=== PATIENT | female | born 1950 | race Caucasian/White ===

== ENCOUNTER 2018-01-08 07:56 | Day surgery (SDC) | payer MEDICARE ==
[~2018-01-08] VITALS: Ht 162.6 cm; Wt 107.6 kg
[~2018-01-08 07:56] MED LIST: ASPI81CH; Adult Low Dose81 MG PO; CHOL10002 PO; CITA20; CITA20 PO; DIOVAN/HCT; ESTR2 PO; FISH OIL 1,0001 EAC1 PO; HYDCHL12.5; HYDCHL12.5 PO; METO25 PO; METO50 PO; MULTI VITAMIN1 EACH PO; NAPR220; UBID100 PO; VENL75 PO; VITAMIN B COMPLEX PO
== END 2018-01-08 10:00 | disposition home or self-care (01) ==
LOC: ORSCSDS 07:56
PROVIDERS: Internal Medicine Gastroenterology
PROC: 0DJD8ZZ Inspection of Lower Intestinal Tract, Via Natural or Artificial Opening Endoscopic (ICD-10-PCS; principal; 2018-01-08 09:30)
DX: Z12.11 Encounter for screening for malignant neoplasm of colon (principal); K57.30 Diverticulosis of large intestine without perforation or abscess without bleeding; F32.9 Major depressive disorder, single episode, unspecified; K64.4 Residual hemorrhoidal skin tags; I10 Essential (primary) hypertension; E11.9 Type 2 diabetes mellitus without complications; G47.33 Obstructive sleep apnea (adult) (pediatric); E78.5 Hyperlipidemia, unspecified; K76.0 Fatty (change of) liver, not elsewhere classified; Z87.891 Personal history of nicotine dependence; E66.9 Obesity, unspecified; Z68.41 Body mass index [BMI] 40.0-44.9, adult; Z79.82 Long term (current) use of aspirin; Z79.84 Long term (current) use of oral hypoglycemic drugs; Z79.899 Other long term (current) drug therapy
CPT/HCPCS: 82947; J7120

== ENCOUNTER 2020-04-06 10:50 | Day surgery (SDC) | payer MEDICARE ==
[~2020-04-06] VITALS: Ht 162.6 cm; Wt 107.0 kg
[~2020-04-06 10:50] MED LIST changes: +ASPIR 8181 M1 PO; +ATOR20 PO; -Adult Low Dose81 MG PO; +BUPR100 PO; -CHOL10002 PO; +METF500 PO; +VITAMIN D310 MC4 PO
--- NOTE | 2020-04-06 15:33 | NUR ---
ARRIVED FROM PACU VIA BED, AWAKE, A&OX3, DENIES ANY PAIN, REPORTS BLE'S ARE STILL NUMB, UNABLE TO MOVE BLE'S AT THIS TIME, DSG C/D/I, POLAR PACK IN PLACE, PLACED ON 2L O2 VIA NC, SATS 87% ON RA, PT STATES HER DAUGHTER IS GOING TO BRING IN HER CPAP, MONITOR VS AND ANY CHANGES, ASSIST PRN.
--- NOTE | 2020-04-06 18:18 | NUR ---
STSUMMARY DENIES ANY PAIN, ABLE TO MOVE BOTH FEET AND SLIGHTLY LIFT OFF BED, PT STATES STILL HAS WEAKNESS ON LLE, USED BEDPAN TO VOID, DSG C/D/I, NO ACUTE CHANGES THIS SHIFT.
[2020-04-07 05:40] LABS: BASOPHILS ABSOLUTE AUTO 0.02 K/mm3 (0.00-0.23); BASOPHILS PERCENT AUTO 0 % (0-2); EOSINOPHILS PERCENT AUTO 0 % (0-6); Hematocrit 35.9 % (33.0-51.0); Hemoglobin 11.4 g/dL (11.5-16.0); IMMATURE GRAN ABSOLUTE AUTO 0.05 K/mm3 (0.00-0.10); IMMATURE GRAN PERCENT AUTO 0 % (0-1); LYMPHOCYTES ABSOLUTE AUTO 1.44 K/mm3 (0.84-5.20); LYMPHOCYTES PERCENT AUTO 11 % (21-46); MONOCYTES ABSOLUTE AUTO 1.02 K/mm3 (0.16-1.47); MONOCYTES PERCENT AUTO 8 % (4-13); Mean Corpuscular HGB 28.2 pg (26.0-34.0); Mean Corpuscular HGB Conc 31.8 g/dL (31.5-36.5); Mean Corpuscular Volume 89 fL (80-100); NEUTROPHILS ABSOLUTE AUTO 10.68 K/mm3 (1.96-9.15); NEUTROPHILS PERCENT AUTO 81 % (41-73); Platelet Count 203 K/mm3 (150-400); RDW Coefficient Variation 12.3 % (11.7-14.2); RDW Standard Deviation 40.1 fL (35.1-46.3); Red Blood Cell Count 4.04 M/mm3 (3.80-5.20); White Blood Cell Count 13.21 K/mm3 (4.00-11.30)
[2020-04-07 06:02] LABS: Anion Gap 8 mmol/L (6-16); Blood Urea Nitrogen 20 mg/dL (8-24); Bun/Creatinine Ratio 28.7 (12.0-20.0); CO2, Blood 26 mmol/L (21-32); Calcium, Blood 8.9 mg/dL (8.5-10.1); Chloride, Blood 107 mmol/L (98-108); Glomerular Filtration Rate >60 (60-); Glucose, Blood 129 mg/dL (70-99); Magnesium, Blood 1.4 mg/dL (1.6-2.4); Potassium, Blood 4.2 mmol/L (3.5-5.5); Sodium, Blood 141 mmol/L (136-145)
--- NOTE | 2020-04-07 06:25 | NUR ---
SHIFT SUMMARY LYING IN SEMI FOWLERS WITH EYES OPEN. HAS RESTED WELL THIS SHIFT, PIV IS PATENT, FLUSHING WITH EASE. LEFT KNEE AQUACEL IS PATENT, NO SHADOWING NOTED. NO SIGNIFICANT CHANGES THIS SHIFT. DENIES PAIN, DISCOMFORT, OR FURTHER NEEDS AT THIS TIME. SAFETY MEASURES IN PLACE. WILL CONTINUE TO MONITOR UNTIL GIVING HAND OFF TO ONCOMING SHIFT USING SBAR.
[2020-04-07] MEDS ORDERED: ACET500 PO (09:38)
[2020-04-07] MEDS ORDERED: OXYC5 PO (09:39)
--- NOTE | 2020-04-07 10:15 | NUR ---
L KNEE DRESSING CHANGED, SLIGHT BRUISING NOTED AROUND INCISIONS SITE, NO REDNESS NOTED, NEW AQUACEL DRESSING PLACED, PT INSTRUCTED ON DRESSING CHANGE, VERBALIZED UNDERSTANDING.
== END 2020-04-07 10:51 | disposition home or self-care (01) ==
LOC: ORSCMMR 10:50 → ORD 13:45 → ORSCMMR 13:45 → SURS 14:50 → ORSCMMR 04-07 10:51
PROVIDERS: Orthopaedic Surgery
PROC: 8E0Y0CZ Robotic Assisted Procedure of Lower Extremity, Open Approach (ICD-10-PCS; principal; 2020-04-06 13:45)
PROC: 0SRD0JA Replacement of Left Knee Joint with Synthetic Substitute, Uncemented, Open Approach (ICD-10-PCS; principal; 2020-04-06 13:45)
DX: M17.12 Unilateral primary osteoarthritis, left knee (principal); I10 Essential (primary) hypertension; G47.33 Obstructive sleep apnea (adult) (pediatric); E11.9 Type 2 diabetes mellitus without complications; E66.01 Morbid (severe) obesity due to excess calories; Z68.41 Body mass index [BMI] 40.0-44.9, adult; Z79.84 Long term (current) use of oral hypoglycemic drugs; Z79.82 Long term (current) use of aspirin; Z79.899 Other long term (current) drug therapy
CPT/HCPCS: 27447; S2900; 36415; 73560-LT; 80048; 82947; 83735; 85025; 88300; 94760; 97110; 97116; 97162; 97530; A9270; C1776; J0171; J0690; J0735; J1100; J1815; J1885; J2250; J2370; J2405; J2704; J2795; J7120

== ENCOUNTER 2021-09-13 07:30 | Inpatient (IN) | payer MEDICARE ==
[~2021-09-13] VITALS: Ht 162.6 cm; Wt 105.6 kg
[~2021-09-13 07:30] MED LIST changes: +ACET500 PO; +OXYC5 PO
--- NOTE | 2021-09-27 07:25 | NUR ---
Ambulatory in Day Surgery History, Chart, Medications and Allergies reviewed before start of procedure.Patient confirms NPO status and agrees with scheduled surgery.
--- NOTE | 2021-09-27 11:45 | NUR ---
09/27/21 Shey Boo PRIOR TO MOVING THE PATIENT OVER AFTER EXTUBATION, WHILE REMOVING THE LEFT LATERAL POSITIONER NOTED LIGHT BLANCHING WITH A SMALL DONNA SIZED RED SPOT. NOTIFED AND EXAMINED SPOT. SPOT BEGAN TO IMPROVE IN COLOR PRIOR TO LEAVING THE OR.
--- NOTE | 2021-09-27 19:17 | NUR ---
SHIFT SUMMARY PT STATUS POST R SHOULDER ARTHROPLASTY WITH DR. VIDAL. PT UP IN A CHAIR WITH HER ARM IN AN IMMOBILIZER. DENIES PAIN OR NAUSEA. TOLERATING PO INTAKE WELL. WORKED WITH PHYSICAL THERAPY. VSS. REPORT GIVEN TO ONCOMING RN.
--- NOTE | 2021-09-28 04:07 | NUR ---
SHIFT SUMMARY NO ACUTE CHANGES THIS SHIFT. PT RESTED WELL. R SHOULDER DRESSING REMAINS CDI AND RUE IN IMMOBILIZER WITH POLAR PACK IN PLACE. PT DENIES SHOULDER PAIN BUT RECEIVING SCHEDULED PAIN MEDICATIONS PER ORDERS. UP WITH 1 SBA TO BRP. WEARS CPAP AT [facility]. USES CALL LIGHT APPROPRIATELY.
[2021-09-28 05:26] LABS: BASOPHILS ABSOLUTE AUTO 0.01 K/mm3 (0.00-0.23); BASOPHILS PERCENT AUTO 0 % (0-2); EOSINOPHILS ABSOLUTE AUTO 0.01 K/mm3 (0.00-0.68); EOSINOPHILS PERCENT AUTO 0 % (0-6); Hematocrit 33.5 % (33.0-51.0); Hemoglobin 10.8 g/dL (11.5-16.0); IMMATURE GRAN ABSOLUTE AUTO 0.05 K/mm3 (0.00-0.10); IMMATURE GRAN PERCENT AUTO 0 % (0-1); LYMPHOCYTES ABSOLUTE AUTO 1.26 K/mm3 (0.84-5.20); LYMPHOCYTES PERCENT AUTO 10 % (21-46); MONOCYTES ABSOLUTE AUTO 1.12 K/mm3 (0.16-1.47); MONOCYTES PERCENT AUTO 9 % (4-13); Mean Corpuscular HGB 27.6 pg (26.0-34.0); Mean Corpuscular HGB Conc 32.2 g/dL (31.5-36.5); Mean Corpuscular Volume 86 fL (80-100); Mean Platelet Volume 10.5 fL (9.1-12.4); NEUTROPHILS ABSOLUTE AUTO 9.83 K/mm3 (1.96-9.15); NEUTROPHILS PERCENT AUTO 80 % (41-73); Platelet Count 179 K/mm3 (150-400); RDW Coefficient Variation 13.3 % (11.7-14.2); RDW Standard Deviation 42.1 fL (35.1-46.3); Red Blood Cell Count 3.91 M/mm3 (3.80-5.20); White Blood Cell Count 12.28 K/mm3 (4.00-11.30)
[2021-09-28 05:48] LABS: Bun/Creatinine Ratio 27.6 (12.0-20.0); Calcium, Blood 8.5 mg/dL (8.5-10.1); Creatinine, Blood 0.87 mg/dL (0.40-1.00); Magnesium, Blood 1.8 mg/dL (1.6-2.4); Potassium, Blood 3.9 mmol/L (3.5-5.5)
[2021-09-28] MEDS ORDERED: ACET500 PO (07:49)
[2021-09-28] MEDS ORDERED: OXYC5 PO (07:50)
--- NOTE | 2021-09-28 13:14 | NUR ---
DISCHARGE SUMMARY POD 1 R TOTAL SHOULDER, A/O X4, VSS, TOLERATING PO, DENIES PAIN, AMBULATES INDEPENDENTL AFTER MINIMAL ASSISTANCE TO STAND UP. C/O MILD SOB c EXERTION WHEN GETTING UP FOR BREAKFAST, RT CONSULTED AND RECOMMENDED IS USE WHICH WAS GIVEN BY THIS RN. DID WELL WITH PHYSICAL THERAPY. DISCUSSED DISCHARGE INFORMATION WTIH THE PATIENT INCLUDING HOME CARE, MEDICATIONS INCLUDING NEW PRESCRIPTIONS, CONTACT INFORMATION SHOULD QUESTIONS COME UP AFTER SHE LEAVES, AND FOLLOW UP APPOINTMENTS. ALL QUESTIONS ANSWERED TO PATIENT AND HER DAUGHTERS SATISFACTION. IV ACCESS REMOVED AND NO OTHER DEVICES IN PLACE. ESCORTED OUT VIA WC TO PRIVATE AUTO.
== END 2021-09-28 12:55 | disposition home or self-care (01) | DRG 483 ==
LOC: SURS 09-27 06:08 → PRE IP 09-27 07:30 → SURS 09-27 12:43
PROVIDERS: ADMIT Orthopaedic Surgery
PROC: 0RRJ0JZ Replacement of Right Shoulder Joint with Synthetic Substitute, Open Approach (ICD-10-PCS; principal; 2021-09-27 07:30)
DX: M19.011 Primary osteoarthritis, right shoulder (principal); F32.A Depression, unspecified; E11.9 Type 2 diabetes mellitus without complications; I10 Essential (primary) hypertension; Z96.652 Presence of left artificial knee joint; Z87.19 Personal history of other diseases of the digestive system; Z98.890 Other specified postprocedural states; Z90.710 Acquired absence of both cervix and uterus; Z87.891 Personal history of nicotine dependence; Z85.9 Personal history of malignant neoplasm, unspecified; Z79.82 Long term (current) use of aspirin; Z79.899 Other long term (current) drug therapy; Z79.84 Long term (current) use of oral hypoglycemic drugs; Z98.42 Cataract extraction status, left eye
CPT/HCPCS: 36415; 73030; 80048; 82947; 83735; 85025; 97110; 97116; 97162; 97166; 97530; 97535; A9270; C1776; J0171; J0690; J0735; J1100; J1815; J1885; J2250; J2370; J2405; J2704; J2795; J3010; J7120

== ENCOUNTER → 2022-03-03 | Outpatient (CLI) | payer MEDICARE | LOC: LAB SHORT 10:10 → LAB 10:10 | DX: R60.0 Localized edema (principal) | CPT/HCPCS: 87070; 87205 ==

== ENCOUNTER 2022-09-07 22:01 | Inpatient (IN) | payer MEDICARE ==
[~2022-09-07] VITALS: Ht 162.6 cm; Wt 107.3 kg
[2022-09-07 22:26] LABS: BASOPHILS ABSOLUTE AUTO 0.05 K/mm3 (0.00-0.23); BASOPHILS PERCENT AUTO 1 % (0-2); EOSINOPHILS ABSOLUTE AUTO 0.15 K/mm3 (0.00-0.68); EOSINOPHILS PERCENT AUTO 2 % (0-6); Hematocrit 38.5 % (33.0-51.0); Hemoglobin 12.8 g/dL (11.5-16.0); IMMATURE GRAN ABSOLUTE AUTO 0.03 K/mm3 (0.00-0.10); IMMATURE GRAN PERCENT AUTO 0 % (0-1); LYMPHOCYTES ABSOLUTE AUTO 2.27 K/mm3 (0.84-5.20); LYMPHOCYTES PERCENT AUTO 30 % (21-46); MONOCYTES ABSOLUTE AUTO 0.78 K/mm3 (0.16-1.47); MONOCYTES PERCENT AUTO 10 % (4-13); Mean Corpuscular HGB 28.1 pg (26.0-34.0); Mean Corpuscular HGB Conc 33.2 g/dL (31.5-36.5); Mean Corpuscular Volume 85 fL (80-100); Mean Platelet Volume 10.6 fL (9.1-12.4); NEUTROPHILS ABSOLUTE AUTO 4.41 K/mm3 (1.96-9.15); NEUTROPHILS PERCENT AUTO 57 % (41-73); Platelet Count 206 K/mm3 (150-400); RDW Coefficient Variation 13.4 % (11.7-14.2); RDW Standard Deviation 41.5 fL (35.1-46.3); Red Blood Cell Count 4.55 M/mm3 (3.80-5.20); White Blood Cell Count 7.69 K/mm3 (4.00-11.30)
[2022-09-07] MEDS ORDERED: ATOR10 PO (22:50)
[2022-09-07] MEDS ORDERED: ASPI81CH PO (22:50)
[2022-09-07 22:51] LABS: Albumin, Blood 3.8 g/dL (3.4-5.0); Albumin/Globulin Ratio 1.2 (0.8-1.8); Bilirubin, Total 0.7 mg/dL (0.1-1.0); Bun/Creatinine Ratio 27.5 (12.0-20.0); Creatinine, Blood 0.8 mg/dL (0.40-1.00); Globulin, Blood 3.3 g/dL (2.2-4.0); Potassium, Blood 3.7 mmol/L (3.5-5.5); Total Protein, Blood 7.1 g/dL (6.4-8.2)
[2022-09-07] MEDS ORDERED: METOPROLOL TART5010 PO (22:51)
[2022-09-07] MEDS ORDERED: LOSARTAN POTASS25 M2 PO (22:51)
[2022-09-07] MEDS ORDERED: BUPROPION XL150 M1 PO (22:51)
[2022-09-08 00:27] LABS: Anti-Xa UFH, PHA Monitoring <0.10 IU/mL; International Normalized Ratio 1.01; Prothrombin Time Results 10.6 Sec (9.7-11.5)
[2022-09-08 01:18] VITALS: BP 136/60
[2022-09-08 03:26] VITALS: BP 120/58
[2022-09-08 03:36] LABS: BASOPHILS ABSOLUTE AUTO 0.04 K/mm3 (0.00-0.23); BASOPHILS PERCENT AUTO 0 % (0-2); EOSINOPHILS ABSOLUTE AUTO 0.13 K/mm3 (0.00-0.68); EOSINOPHILS PERCENT AUTO 1 % (0-6); Hemoglobin 12.3 g/dL (11.5-16.0); IMMATURE GRAN ABSOLUTE AUTO 0.03 K/mm3 (0.00-0.10); IMMATURE GRAN PERCENT AUTO 0 % (0-1); LYMPHOCYTES PERCENT AUTO 22 % (21-46); MONOCYTES ABSOLUTE AUTO 1.01 K/mm3 (0.16-1.47); MONOCYTES PERCENT AUTO 9 % (4-13); Mean Corpuscular HGB 27.8 pg (26.0-34.0); Mean Corpuscular HGB Conc 33.2 g/dL (31.5-36.5); Mean Corpuscular Volume 84 fL (80-100); Mean Platelet Volume 10.7 fL (9.1-12.4); NEUTROPHILS PERCENT AUTO 67 % (41-73); Platelet Count 195 K/mm3 (150-400); RDW Coefficient Variation 13.6 % (11.7-14.2); RDW Standard Deviation 41.3 fL (35.1-46.3); Red Blood Cell Count 4.42 M/mm3 (3.80-5.20); White Blood Cell Count 11.21 K/mm3 (4.00-11.30)
[2022-09-08 05:47] LABS: Alanine Aminotransfer (ALT/SGP 34 U/L (12-78); Albumin, Blood 3.6 g/dL (3.4-5.0); Albumin/Globulin Ratio 1.2 (0.8-1.8); Alk Phos 76 U/L (50-136); Anion Gap 8 mmol/L (6-16); Aspartate Aminotrans (AST/SGOT 48 U/L (12-37); Bilirubin, Total 0.8 mg/dL (0.1-1.0); Blood Urea Nitrogen 18 mg/dL (8-24); Bun/Creatinine Ratio 23.3 (12.0-20.0); CHOL/HDL RATIO 2.6; CO2, Blood 24 mmol/L (21-32); Calcium, Blood 9.1 mg/dL (8.5-10.1); Chloride, Blood 106 mmol/L (98-108); Cholesterol 102 mg/dL (50-200); Creatinine, Blood 0.77 mg/dL (0.40-1.00); Glomerular Filtration Rate 81 (60-); Glucose, Blood 218 mg/dL (70-99); HDL Cholesterol 40 mg/dL (>39); Low Density Lipoprotein Chol 38 mg/dL (0-110); Magnesium, Blood 1.6 mg/dL (1.6-2.4); Potassium, Blood 3.8 mmol/L (3.5-5.5); Sodium, Blood 138 mmol/L (136-145); Total Protein, Blood 6.6 g/dL (6.4-8.2); Triglycerides 120 mg/dL (30-160); Very Low Density Lipoprot Chol 24 mg/dL (6-32)
--- NOTE | 2022-09-08 06:36 | NUR ---
SHIFT SUMMARY PATIENT ALERT AND ORIENTED X4. NO NEUROLOGICAL DEFICITS NOTED. STEADY ON HER FEET AND ABLE TO SAFELY AMBULATE INDEPENDENTLY IN HER ROOM. VITAL SIGNS STABLE. SHE DENIES CHEST PAIN AND SHORTNESS OF BREATH. SPO2 >90% ON ROOM AIR. TROPONIN TRENDING DOWN. NO ACUTE ISSUES NOTED OVERNIGHT. WILL CONTINUE TO MONITOR. CALL LIGHT WITHIN REACH. PATIENT ASSESSED FOR SOURCES OF IGNITION AND EDUCATED ON FIRE SAFETY WHILE IN THE HOSPITAL.
[2022-09-08 08:41] VITALS: BP 129/66
[2022-09-08 11:29] VITALS: BP 108/64
--- NOTE | 2022-09-08 13:15 | NUR ---
TR BAND AIR REMOVAL PROTOCOL STARTED. AREA IS WITHOUT HEMATOMA OR SIGNS OF BLEEDING. PT WAS EDUCATED ON THE IMPORTANCE OF ARM BOARD AND RISK FOR BLEEDING. WILL CONTINUE REMOVING AIR PER PROTOCOL
--- NOTE | 2022-09-08 16:45 | NUR ---
Discharge note. Pt back from angio with no intervention. Pt denies any additional CP. TR band to right wrist recovered per protocol. Education given on signs to watch for with angio site and when to return. Pt was escorted to the exit. All belongings taken with Pt.
== END 2022-09-08 16:31 | disposition home or self-care (01) | DRG 281 ==
LOC: ER 22:01 → PCU 23:45
PROVIDERS: Physician Assistant; Student in an Organized Health Care Education/Training Program; ADMIT Student in an Organized Health Care Education/Training Program
PROC: 4A023N7 Measurement of Cardiac Sampling and Pressure, Left Heart, Percutaneous Approach (ICD-10-PCS; principal; 2022-09-08)
PROC: B211YZZ Fluoroscopy of Multiple Coronary Arteries using Other Contrast (ICD-10-PCS; 2022-09-08)
DX: I21.4 Non-ST elevation (NSTEMI) myocardial infarction (principal); Z68.41 Body mass index [BMI] 40.0-44.9, adult; I10 Essential (primary) hypertension; E78.5 Hyperlipidemia, unspecified; M19.90 Unspecified osteoarthritis, unspecified site; E11.9 Type 2 diabetes mellitus without complications; F32.A Depression, unspecified; E66.9 Obesity, unspecified; Z96.611 Presence of right artificial shoulder joint; Z96.652 Presence of left artificial knee joint; Z90.710 Acquired absence of both cervix and uterus; Z79.82 Long term (current) use of aspirin; Z79.899 Other long term (current) drug therapy; Z79.84 Long term (current) use of oral hypoglycemic drugs; Z98.41 Cataract extraction status, right eye; Z98.890 Other specified postprocedural states; Z87.891 Personal history of nicotine dependence; Z85.828 Personal history of other malignant neoplasm of skin; Z79.02 Long term (current) use of antithrombotics/antiplatelets; Z90.89 Acquired absence of other organs
CPT/HCPCS: 36415; 71046; 76937; 80053; 80061; 83036; 83735; 84443; 84484; 85025; 85520; 85610; 85730; 93005; 93010; 93458; 99152; 99153; 99285-25; A9270; C1769; C1887; C1894; J1644; J2250; J3010; J7030; J7050; J7120; Q9967

== ENCOUNTER 2022-09-12 08:20 | Emergency (ER) | payer OTHER, MEDICARE ==
[~2022-09-12] VITALS: Ht 160 cm; Wt 106.6 kg
[~2022-09-12 08:20] MED LIST changes: +ASPI81CH PO; +ATOR10 PO; +BUPROPION XL150 M1 PO; +LOSARTAN POTASS25 M2 PO; +METOPROLOL TART5010 PO
[2022-09-12 09:15] VITALS: BP 126/52
== END 2022-09-12 10:36 | disposition home or self-care (01) ==
LOC: ER 08:20
DX: S91.311A Laceration without foreign body, right foot, initial encounter (principal); S91.114A Laceration without foreign body of right lesser toe(s) without damage to nail, initial encounter; I10 Essential (primary) hypertension; E78.5 Hyperlipidemia, unspecified; Z23 Encounter for immunization; Z85.828 Personal history of other malignant neoplasm of skin; Z79.82 Long term (current) use of aspirin; Z79.899 Other long term (current) drug therapy; W01.198A Fall on same level from slipping, tripping and stumbling with subsequent striking against other object, initial encounter
CPT/HCPCS: 12002; 90471; 90714; 99282-25

== ENCOUNTER → 2024-10-29 | Outpatient (CLI) | payer MEDICARE | LOC: LAB SHORT 17:58 → LAB 17:58 | DX: R82.90 Unspecified abnormal findings in urine (principal) | CPT/HCPCS: 87077; 87086; 87186 ==